=== PATIENT | female | born 1975 | race Caucasian/White ===

== ENCOUNTER 2022-02-26 10:34 | Inpatient (IN) | payer BC ==
[~2022-02-26] VITALS: Ht 172.7 cm; Wt 106.4 kg
[2022-02-26] MEDS ORDERED: LEVO200T4 PO (10:42)
[2022-02-26] MEDS ORDERED: SERT-141 PO (10:42)
[2022-02-26 11:51] LABS: HEMATOCRIT 38.3 % (36.0-47.0); HEMOGLOBIN 12.4 g/dl (12.0-15.5); MEAN CORPUSCULAR HEMOGLOBIN 28.1 pg (27.0-33.0); MEAN CORPUSCULAR HGB CONC 32.4 g/dl (32.0-36.5); MEAN CORPUSCULAR VOLUME 86.8 fl (80.0-96.0); PLATELET COUNT, AUTOMATED 376 10^3/uL (150-450); RED BLOOD COUNT 4.41 10^6/uL (4.00-5.40); WHITE BLOOD COUNT 9.5 10^3/uL (4.0-10.0)
[2022-02-26 12:23] LABS: RSV AMPLIFICATION NEGATIVE (NEGATIVE)
[2022-02-26 12:24] LABS: ACETAMINOPHEN LEVEL < 2.0 UG/ML (10.0-20.0); ALT/SGPT 21 U/L (7.0-40); BILIRUBIN,DIRECT 0.1 MG/DL (<0.4); BILIRUBIN,TOTAL 0.4 MG/DL (0.3-1.2); BLOOD UREA NITROGEN 7 MG/DL (9-23); CALCIUM LEVEL 9.2 MG/DL (8.5-10.1); CARBON DIOXIDE LEVEL 27 MMOL/L (20-31); CHLORIDE LEVEL 103 MMOL/L (98-107); CREATININE FOR GFR 0.86 MG/DL (0.55-1.30); ETHYL ALCOHOL (ETHANOL) 0.003 % (0.000-0.010); GLOMERULAR FILTRATION RATE > 60.0 (>58); GLUCOSE, FASTING 83 MG/DL (60-100); POTASSIUM SERUM 4.4 MMOL/L (3.5-5.1); SODIUM LEVEL 137 MMOL/L (136-145); THYROID STIMULATING HORMONE 44.548 uIU/ML (0.55-4.78); TOTAL PROTEIN 7.4 G/DL (5.7-8.2)
[2022-02-26 12:27] LABS: SALICYLATE LEVEL < 3.0 MG/DL (<30)
[2022-02-26 13:16] LABS: AMPHETAMINES LEVEL URINE NEGATIVE (NEGATIVE); BARBITURATES URINE NEGATIVE (NEGATIVE); BENZODIAZEPINES URINE NEGATIVE (NEGATIVE); CANNABINOIDS URINE POSITIVE (NEGATIVE); COCAINE METABOLITE URINE NEGATIVE (NEGATIVE); METHADONE URINE NEGATIVE (NEGATIVE); OPIATES URINE NEGATIVE (NEGATIVE); PHENCYCLIDINE URINE NEGATIVE (NEGATIVE)
[2022-02-26] MEDS ORDERED: cloNIDine HCL 0.3 MG/24 HR PATCH TOP SCH (14:00)
[2022-02-26] MEDS ORDERED: HOME MED LIST COMPLETE! XX SCH (15:15)
[2022-02-27] MEDS ORDERED: LEVOTHYROXINE 100MCG TABLET (0.1MG) PO SCH (06:00)
[2022-02-27] MEDS ORDERED: SERTRALINE HCL 50 MG TAB PO SCH ×2 (09:00)
[2022-02-27] MEDS ORDERED: NICOTINE 21MG/24HR 1 EA TRANSDERMAL TD SCH (09:00)
[2022-02-27] MEDS ORDERED: MAALOX 30 ML SUSP *UDC PO PRN (12:25)
[2022-02-27] MEDS ORDERED: MOM 30ML SUSPENSION UDC PO PRN (12:25)
[2022-02-27] MEDS ORDERED: IBUPROFEN 400MG TAB PO PRN (12:25)
[2022-02-27] MEDS ORDERED: traZODone 50 MG TAB PO PRN (12:25)
[2022-02-28] MEDS ORDERED: LEVOTHYROXINE 100MCG TABLET (0.1MG) PO SCH ×2 (06:00)
[2022-02-28 06:31] VITALS: BP 110/72
[2022-02-28] MEDS ORDERED: INFLUENZA QUADRIVALENT PF VACCINE 0.5ML SYRINGE IM.IMMUN ONE (09:00)
[2022-02-28] MEDS ORDERED: SERTRALINE HCL 50 MG TAB PO SCH (09:00)
[2022-02-28] MEDS: busPIRone 5 MG TAB PO SCH ×3 (09:02→19:57)
[2022-02-28] MEDS: SERTRALINE 100 MG TAB PO SCH (09:06)
[2022-02-28 16:31] VITALS: BP 142/82
[2022-02-28] MEDS: hydrOXYzine 50 MG TAB PO PRN (19:56)
[2022-03-01] MEDS: LEVOTHYROXINE 75MCG TABLET (0.075MG) PO SCH (06:04)
[2022-03-01 06:44] VITALS: BP 124/70
[2022-03-01] MEDS: busPIRone 5 MG TAB PO SCH ×3 (08:38→20:17)
[2022-03-01] MEDS: SERTRALINE 100 MG TAB PO SCH (08:38)
[2022-03-01 08:51] LABS: CHOLESTEROL RISK RATIO 3.55 (<5); FREE THYROXINE INDEX 1.5 % (1.3-4.8); HDL CHOLESTEROL 63.8 MG/DL (>40); HEMOGLOBIN A1c 5.5 % (4.0-6.0); LDL CHOLESTEROL 151.6 MG/DL (<100); T UPTAKE 25.2 % (22.5-37.0); THYROID STIMULATING HORMONE 57.744 uIU/ML (0.55-4.78); THYROXINE (T4) 5.8 UG/DL (4.5-10.9)
[2022-03-01 16:59] VITALS: BP 137/74
[2022-03-02] MEDS: LEVOTHYROXINE 75MCG TABLET (0.075MG) PO SCH (05:53)
[2022-03-02 06:04] VITALS: BP 126/64
[2022-03-02] MEDS: SERTRALINE 100 MG TAB PO SCH (08:39)
[2022-03-02] MEDS: busPIRone 5 MG TAB PO SCH ×2 (08:39→15:10)
[2022-03-02] MEDS ORDERED: LEVO75TA4 PO (12:45)
[2022-03-02] MEDS ORDERED: ZOLO100T PO (12:45)
[2022-03-02] MEDS ORDERED: BUSP5TA PO (12:45)
[2022-03-02] MEDS ORDERED: HYDR50TA70 PO (12:45)
[2022-03-02] MEDS: hydrOXYzine 50 MG TAB PO PRN (15:10)
== END 2022-03-02 15:56 | disposition home or self-care (01) | DRG 751 ==
LOC: M ED 10:34 → M ED INP 02-27 12:24 → M PSY 02-27 22:38
PROVIDERS: ADMIT Psychiatry & Neurology Psychiatry; ATTEND Student in an Organized Health Care Education/Training Program
DX: F32.1 Major depressive disorder, single episode, moderate (principal); F60.89 Other specific personality disorders; E06.3 Autoimmune thyroiditis; Z98.84 Bariatric surgery status; Z81.8 Family history of other mental and behavioral disorders; E66.9 Obesity, unspecified; Z79.890 Hormone replacement therapy; Z79.899 Other long term (current) drug therapy; F43.20 Adjustment disorder, unspecified; Z63.5 Disruption of family by separation and divorce; Z68.35 Body mass index [BMI] 35.0-35.9, adult